=== PATIENT | female | born 1940 | race African-American/Black ===

== ENCOUNTER 2017-01-11 10:19 | Inpatient (IN) ==
[2017-01-11] MEDS ORDERED: cefTRIAXone 1,000 MG in SODIUM CHLORIDE 0.9% 100 ML IV STA (11:34)
[2017-01-11] MEDS ORDERED: ALBUTEROL/IPRATROPIUM 3 ML NEB RESP TX STA (11:34)
--- NOTE | 2017-01-11 12:02 | XRay Report ---
2 view chest. Indication: Cough and fever. The heart is mildly enlarged. Post median sternotomy. Pulmonary vasculature is probably normal. There is diffuse, marked interstitial prominence, there is no consolidation or pleural effusion. Degenerative changes are present within the spinal column and shoulders. Impression: Mild cardiomegaly. Severe interstitial prominence. This may be the result of interstitial fibrosis, interstitial pneumonia, or interstitial edema. PROCEDURE INTERPRETED AT [facility]PART[facility] OF RADIOLOG[facility] Final Report Signed by: Dr. Adriana Narvaez
[2017-01-11 12:13] LABS: Basophils # 0.1 10*3/uL (0.0-0.2); Basophils % 0.4 % (0.0-0.8); Eosinophils # 0.3 10*3/uL (0.0-0.87); Eosinophils % 2.1 % (0.00-10.9); Hematocrit 41.7 VOL% (35.7-47.0); Hemoglobin 13.9 GM/DL (12.0-16.0); Immature Granulocytes % 0.8 %; Immature Granulocytes Absolute 0.13 #; Lymphocytes # 2.5 10*3/uL (1.4-4.0); Lymphocytes % 14.8 % (21.3-54.2); Mean Corpuscular HGB Conc 33.3 GM/DL (32-36); Mean Corpuscular Hemoglobin 29 PG (27-34); Mean Corpuscular Volume 86.2 FL (87-102); Mean Platelet Volume 9.1 FL (9.6-12.0); Monocytes # 1.8 10*3/uL (0.11-0.8); Monocytes % 11.1 % (1.7-12.7); Neutrophils # 11.7 10*3/uL (1.4-7.4); Neutrophils % 70.8 % (38.7-73.9); Platelet Count 393 T/CUMM (130-400); Red Blood Count 4.84 MC/CUMM (3.8-5.5); Red Cell Distribution Width 15.8 % (9.3-17.3); White Blood Count 16.5 T/CUMM (4-12)
[2017-01-11] MEDS ORDERED: SODIUM CHLORIDE 0.9% 100 ML IV ONE (12:16)
[2017-01-11] MEDS ORDERED: cefTRIAXone 1,000 MG VIAL ONE (12:16)
[2017-01-11 12:21] LABS: INR 1.1; PT Patient Result 11.8 SECS; Partial Thromboplastin Time 24.9 SECS (0-40)
[2017-01-11 12:49] LABS: Alanine Aminotransferase 16 U/L (13-56); Albumin 2.9 G/DL (3.4-5.0); Alkaline Phosphatase 98 U/L (45-117); Aspartate Amino Transferase 17 U/L (0-37); Blood Urea Nitrogen 12 MG/DL (7-18); Calcium 10.3 MG/DL (8.5-10.1); Glucose 225 MG/DL (74-106); Osmolality,Calculated 274.2 MOS/KG (273-304); Sodium 134 MMOL/L (136-145); Total Protein 7.3 G/DL (6.4-8.3); Troponin I Only < 0.015 NG/ML (0.00-0.045)
--- NOTE | 2017-01-11 13:32 | Emergency Department Note ---
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 Patient has a history of ammonia several times in the last 2 months and has been admitted at [facility] 3 times according to the family. They state she has really never got back to baseline but worsened again last night. She denies any chest pain, nausea, vomiting or diaphoresis. They also feel like her legs are swelling again. The patient does have a history of CHF according to the family she wears oxygen as needed at home. The family states her oxygen saturation has been progressively decreasing and has been as low as the upper 70s. Allergies/Adverse Reactions: Allergies Allergy/AdvReac Type Severity Reaction Status Date / Time No Known Allergies Allergy Unverified 01/11/17 10:30 Home Medications: Home Medications Medication Instructions Recorded Confirmed Type Atorvastatin [Lipitor] 40 mg PO DAILY 01/11/17 01/11/17 History Budesonide/Formoterol 80-4.5 2 puff INH BID 01/11/17 01/11/17 History [Symbicort 80-4.5] Carvedilol [Coreg] 3.125 mg PO BID 01/11/17 01/11/17 History Fluticasone/Salmeterol 100-50 1 puff INH BID 01/11/17 01/11/17 History [Advair 100-50] Losartan [Cozaar] 25 mg PO DAILY 01/11/17 01/11/17 History Metformin HCl 1,000 mg PO BID 01/11/17 01/11/17 History glyBURIDE [Glyburide] 2.5 mg PO BID 01/11/17 01/11/17 History Review of System - Review of System 12 point system: reviewed and no additional remarkable complaints except as stated - Review of System Constitutional: Present: fever, weakness Head/Ears/Nose/Throat: Absent: nasal drainage, sore throat Respiratory: Present: cough, respiratory distress Cardiovascular: Present: dyspnea on exertion, orthopnea, edema. Absent: chest pain, palpitations, syncope Gastrointestinal: Absent: nausea, vomiting Medical,Surgical,& Family Hx - Medical History Cardio: History of: CHF, Hypertension Endocrine: History of: Diabetes Mellitus (NIDDM), Dyslipidemia Respiratory: History of: Pneumonia - Surgical History Surgical History: noncontributory - Family History Family History: noncontributory - Social History Smoking Status: Never smoker Frequency of Alcohol Use: None Type of Drug Use: None Exam Physical Examination: GENERAL: Alert. No acute distress. HEENT: Normocephalic and atraumatic. There is no nasal drainage. No pharyngeal erythema or exudate. NECK: Normal inspection. Supple. No lymphadenopathy or meningismus. LUNGS: No respiratory distress. Decreased air movement with rales bilaterally, right greater than left.. HEART: Regular rate and rhythm. ABDOMEN: Soft, nontender and nondistended with normoactive bowel sounds. BACK: Normal inspection. SKIN: Color normal. Warm and dry. EXTREMITIES: Nontender. Normal range of motion. No pedal edema. NEUROLOGICAL/PSYCHIATRIC: Alert and oriented -3 with normal mood and affect. Cranial nerves normal. No motor or sensory deficit. Vital Signs: Vital Signs Temperature 100.0 F H 01/11/17 11:19 Pulse Rate 109 H 01/11/17 12:30 Respiratory Rate 20 01/11/17 12:30 Blood Pressure 131/75 01/11/17 12:30 O2 Sat by Pulse Oximetry 87 L 01/11/17 12:30 Course - Reevaluation(s) Reevaluation #1: Urinalysis still pending. Time: 13:30 Reevaluation #2: I have discussed the patient with the hospitalist service who will see her and admit. Time: 13:34 Results - Labs CBC & BMP: 01/11/17 11:31 01/11/17 11:31 Lab Results: I have reviewed the patients labs Labs: Laboratory Tests 01/11/17 01/11/17 01/11/17 11:31 11:31 11:31 INR 1.1 Lactic Acid Magnesium Total Bilirubin 0.50 AST 17 ALT 16 Alkaline Phosphatase 98 Total Creatine Kinase 54 CK-MB (CK-2) < 1.0 Troponin I < 0.015 B-Natriuretic Peptide 48 01/11/17 01/11/17 11:31 11:31 INR Lactic Acid 2.0 Magnesium 1.8 Total Bilirubin AST ALT Alkaline Phosphatase Total Creatine Kinase CK-MB (CK-2) Troponin I B-Natriuretic Peptide - Impressions Chest x-ray shows:Mild cardiomegaly. Severe interstitial prominence. This may be the result of interstitial fibrosis, interstitial pneumonia, or interstitial edema. Disposition Clinical Impression: Pneumonia Case discussed with: patient, patient's family Disposition: Still a Patient Condition: Stable Time of Disposition: 13:33
[2017-01-11 13:38] LABS: Hypochromasia 2+; Target Cells Slight
--- NOTE | 2017-01-11 14:10 | Hospitalist History & Physical ---
Assessment and Plan - Time spent with patient Time spent with patient: Greater than 30 minutes (1) Pneumonia Status: Acute Assessment and plan: Will admit to Hospital Services. Will start Antibiotic therapy. Will start Duonebs breathing treatments. Will order a.m. labs, including A1c. Will monitor for blood culture results. Will discuss with Dr Moe for further recommendations. Current Visit: Yes (2) Diabetes Status: Acute Assessment and plan: Will review home medications and reconciliation to follow. Will monitor blood glucose with sliding scale protocol. Current Visit: Yes History of Present Illness Chief complaint: cough and congestion History of present illness: Ms. Alexandre is a 76 year old black female presented to [facility] ED for further evaluation of coughing and congestion that started last night. She reports a fever this a.m. of 101.0 at home and fever Wednesday but did not remember the temperature. PMHx of CHF, HTN, Diabetes, CAD (CABG at [facility]), dyslipidemia. She reports coughing up thick yellow sputum and shortness of breath with exertion. She denies chest pain, nausea or vomiting. Upon arrival at the ED her Temperature was 100.0; HR 115, RR 20, BP 126/62 and O2 SAT 83% on room air, 87-92% on 3 to 4 Liters NC oxygen. She is feeling a little better after breathing treatment was given in the ED. Labs obtained; CXR obtained. Hospital medicine was consulted for admission evaluation. WBC 16.5, H&H 13.9 & 41.7; NA 134, K 4.0; BUN 12 and Creatinine 0.90; Lactic Acid 2.0; Glucose 225; BNP 48 ; Troponin < 0.015; Urine awaiting collection; Blood cultures obtained. Surgical History: CABG, Hysterectomy; Tubal ligation. PCP: Dr Kayley Cid (at [facility] ) (family verbalized that they want to change primary care physicians). After discussion with Dr Zuluaga in ED and Dr Moe with Hospital Medicine, it was agreed to admit patient for further treatment and evaluation. Home medications will be reviewed and reconciliation to follow. Home Medications Medication Instructions Recorded Confirmed Type Atorvastatin [Lipitor] 40 mg PO DAILY 01/11/17 01/11/17 History Budesonide/Formoterol 80-4.5 2 puff INH BID 01/11/17 01/11/17 History [Symbicort 80-4.5] Carvedilol [Coreg] 3.125 mg PO BID 01/11/17 01/11/17 History Fluticasone/Salmeterol 100-50 1 puff INH BID 01/11/17 01/11/17 History [Advair 100-50] Losartan [Cozaar] 25 mg PO DAILY 01/11/17 01/11/17 History Metformin HCl 1,000 mg PO BID 01/11/17 01/11/17 History glyBURIDE [Glyburide] 2.5 mg PO BID 01/11/17 01/11/17 History Allergies Allergy/AdvReac Type Severity Reaction Status Date / Time No Known Allergies Allergy Unverified 01/11/17 10:30 Medical,Surgical,& Family Hx - Medical History Cardio: History of: CHF, Hypertension Endocrine: History of: Diabetes Mellitus (NIDDM), Dyslipidemia Respiratory: History of: Pneumonia - Surgical History Cardiac Surgeries: Sugical HX of: Cardiac Surgery (CABG at [facility] (Dr Hughes)) - Social History Smoking Status: Never smoker Frequency of Alcohol Use: None Type of Drug Use: None Review of systems: ROS completed and pertinent positives and negatives in the HPI. Exam - Constitutional Vitals: Period Temp Pulse Resp BP Sys/Thompson Pulse Ox Last 24 Hr 100.0 F-100.0 F 104-116 18-22 111-158/62-82 83-92 General appearance: no acute distress, over weight - Head Head exam: Present: normal inspection - Eye Eye exam: Present: EOMI Pupils: Present: ALMAZ - Neck Neck exam: Present: normal inspection - Respiratory Respiratory exam: Present: rales (bilaterally). Absent: wheezes - Cardiovascular Cardiovascular exam: Present: tachycardia (105-111 regular rhythm) - GI/Abdominal GI/Abdominal exam: Present: normal bowel sounds, soft. Absent: tenderness, rebound - Extremities Exam Extremities exam: Present: full ROM. Absent: calf tenderness, edema - Neurological Exam Neurological exam: Present: alert, oriented X3 - Psychiatric Psychiatric exam: Present: normal affect, normal mood. Absent: agitated, anxious - Skin Skin exam: Present: normal color, warm, dry Results - Labs CBC & BMP: 01/11/17 11:31 01/11/17 11:31 Lab Results: I have reviewed the past 24 hour labs - Diagnostic Findings Procedure: Chest x-ray: report reviewed by me (mild cardiomegaly; servere intersitital prominence; may be result of interstitial fibrosis; interstitial pneumonia or interstitial edema) Sepsis - Sepsis Possible / Suspected infection from: HR 112 and WBC 16.5 - Physical Exam Physical Exam: Ms Alexandre is awake and alert,oriented x3, and in no acute distress. Skin warm and dry. Her temperature upon arrival to the ED 100.0, HR 112, and BP 129/78; Nasal Cannula o2 at 3l 87-92% oxygen. Abdomen soft, nontender. Extremities without edema and with normal range of motion. - Physical Exam Respiratory exam: rales (bilateral) Capillary Refill: Less Than 3 Seconds Cardiovascular exam: tachycardia (112 regular) Skin exam: normal color
[2017-01-11] MEDS ORDERED: DEXTROSE 50% 25 GM/50 ML SYRINGE IV PRN (14:35)
[2017-01-11] MEDS ORDERED: DOCUSATE SODIUM 100 MG CAPSULE PO PRN (14:35)
[2017-01-11] MEDS ORDERED: ACETAMINOPHEN 325 MG TABLET PO PRN (14:35)
[2017-01-11] MEDS ORDERED: GLUCAGON 1 MG VIAL IM PRN (14:35)
[2017-01-11] MEDS ORDERED: cefTRIAXone 1,000 MG in SODIUM CHLORIDE 0.9% 100 ML IV SCH (16:00)
[2017-01-11] MEDS: SODIUM CHLORIDE 0.9% 1,000 ML IV SCH (16:52)
[2017-01-11] MEDS: LEVOFLOXACIN INJ 750 MG in PREMIX 1 EACH IV SCH (16:53)
[2017-01-11] MEDS ORDERED: INSULIN LISPRO 100 UNIT/ML SUBCUT SCH (18:00)
[2017-01-11] MEDS: ALBUTEROL/IPRATROPIUM 3 ML NEB RESP TX SCH (19:56)
[2017-01-11] MEDS: INSULIN LISPRO 100 UNIT/ML SUBCUT SCH (22:00)
[2017-01-11] MEDS: CARVEDILOL 3.125 MG TABLET PO SCH (22:00)
[2017-01-11] MEDS: FLUTICASONE/SALMETEROL 100-50 DISKUS 14 DOSE INH SCH (22:00)
[2017-01-11] MEDS: BUDESONIDE/FORMOTEROL 80-4.5 INHALER 6.9 GM INH SCH (22:00)
[2017-01-11] MEDS: glyBURIDE 2.5 MG TABLET PO SCH (22:00)
[2017-01-12] MEDS: ALBUTEROL/IPRATROPIUM 3 ML NEB RESP TX SCH ×4 (00:32→19:55)
[2017-01-12] MEDS: SODIUM CHLORIDE 0.9% 1,000 ML IV SCH ×3 (05:23→18:13)
[2017-01-12 06:25] LABS: Basophils # 0.1 10*3/uL (0.0-0.2); Basophils % 0.5 % (0.0-0.8); Eosinophils # 0.6 10*3/uL (0.0-0.87); Eosinophils % 4.2 % (0.00-10.9); Hematocrit 38.2 VOL% (35.7-47.0); Hemoglobin 12.3 GM/DL (12.0-16.0); Immature Granulocytes % 0.5 %; Immature Granulocytes Absolute 0.07 #; Lymphocytes # 2.5 10*3/uL (1.4-4.0); Lymphocytes % 18.7 % (21.3-54.2); Mean Corpuscular HGB Conc 32.2 GM/DL (32-36); Mean Corpuscular Hemoglobin 28 PG (27-34); Mean Platelet Volume 9.4 FL (9.6-12.0); Monocytes # 2.5 10*3/uL (0.11-0.8); Monocytes % 18.9 % (1.7-12.7); Neutrophils # 7.5 10*3/uL (1.4-7.4); Neutrophils % 57.2 % (38.7-73.9); Platelet Count 352 T/CUMM (130-400); Red Blood Count 4.34 MC/CUMM (3.8-5.5); Red Cell Distribution Width 15.7 % (9.3-17.3); White Blood Count 13.1 T/CUMM (4-12)
[2017-01-12 06:58] LABS: Band Neutrophils 2 % (0-10); Eosinophils 4 % (0-10); Hypochromasia 1+; Lymphocytes 21 % (20-55); Platelet Estimate Adequate; Segmented Neutrophils 58 % (50-85); Total Cells Counted 100
[2017-01-12 06:59] LABS: Giant Platelets Few
[2017-01-12 07:02] LABS: Calcium 9.6 MG/DL (8.5-10.1); Magnesium 1.7 MG/DL (1.8-2.4); Osmolality,Calculated 277.4 MOS/KG (273-304); Potassium 3.5 MMOL/L (3.5-5.1)
[2017-01-12 07:52] LABS: Apearance,Urine CLEAR (Clear); Bilirubin,Urine Negative (Negative); Blood, Urine Negative (Negative); Glucose,Urine (UA) Negative (Negative); Ketones,Urine Negative (Negative); Mucus,Urine Occasional /LPF (Occasional); Nitrite,Urine Negative (Negative); Protein,Urine Negative; RBC,Urine <1 /HPF (0-4); Squamous Epithelial Cell,Urine Occasional /HPF (0-10); Urine Color Yellow (Yellow); Urine Specific Gravity 1.008 (1.001-1.035); Urine Urobilinogen < 2.0 EU/DL (0.2-1.0); WBC,Urine <1 /HPF (0-6)
[2017-01-12] MEDS: LOSARTAN 25 MG TABLET PO SCH (08:43)
[2017-01-12] MEDS: CARVEDILOL 3.125 MG TABLET PO SCH ×2 (08:43→21:10)
[2017-01-12] MEDS: PANTOPRAZOLE 40 MG TABLET PO SCH (08:43)
[2017-01-12] MEDS: glyBURIDE 2.5 MG TABLET PO SCH ×2 (08:43→21:09)
[2017-01-12] MEDS: BUDESONIDE/FORMOTEROL 80-4.5 INHALER 6.9 GM INH SCH ×2 (08:44→21:10)
[2017-01-12] MEDS: FLUTICASONE/SALMETEROL 100-50 DISKUS 14 DOSE INH SCH ×2 (08:44→21:10)
[2017-01-12] MEDS: INSULIN LISPRO 100 UNIT/ML SUBCUT SCH ×4 (08:50→21:10)
--- NOTE | 2017-01-12 09:12 | Hospitalist Progress Note ---
Assessment and Plan (1) Pneumonia Status: Acute Assessment and plan: The patient continues on Levaquin and Rocephin for treatment of pneumonia. I am going to add Robitussin to aid the cough symptoms today. White blood cell count is improved. We will check laboratories again on . Current Visit: Yes Qualifiers: Pneumonia type: due to Pneumococcus Laterality: left Lung location: upper lobe of lung Qualified Code(s): J13 - Pneumonia due to Streptococcus pneumoniae (2) Diabetes Status: Chronic Current Visit: Yes Qualifiers: Diabetes mellitus type: type 2 Diabetes mellitus complication status: without complication Hospitalist: Subjective Interval history: The patient is having less shortness of breath today. The patient has some cough with sputum production. The patient has less fever and appears stronger today. Exam - Constitutional Vitals: Period Temp Pulse Resp BP Sys/Thompson Pulse Ox Last 24 Hr 97.3 F-100.0 F 70-116 16-22 106-158/51-82 83-96 Exam: Constitutional System: Mild distress. No tremulousness. Head: Normocephalic, atraumatic. Ears, Nose and Throat System: No evidence of Otitis or Mastoiditis. No epistaxis or discharge Eyes System: Pupils equal, round, and reactive. Extraocular muscles intact. Neck: Supple, without adenopathy, No jugular venous distention. No thyromegaly , neck mass, or prior surgery apparent. Respiratory System: Chest mild air trapping, moderate rhonchi left upper chest anteriorly to auscultation. Cardiovascular System: Heart with regular rate and rhythm. No murmur. GI System: Abdomen soft, nontender. Normo active bowel sounds present. Musculoskeletal System: limbs with no pedal edema. Full distal pulses. Neurological System: No discernable sensory deficit. No aphasia Psychiatric System: Conversation is rational Results - Labs CBC & BMP: 01/12/17 05:02 01/12/17 05:02 Lab Results: I have reviewed the past 24 hour labs
[2017-01-12] MEDS: guaiFENesin/CODEINE 5 ML LIQUID PO PRN ×4 (09:35→21:10)
[2017-01-12] MEDS: cefTRIAXone 1,000 MG in SODIUM CHLORIDE 0.9% 100 ML IV SCH (11:30)
[2017-01-12] MEDS: LEVOFLOXACIN INJ 750 MG in PREMIX 1 EACH IV SCH (17:03)
[2017-01-13] MEDS: ALBUTEROL/IPRATROPIUM 3 ML NEB RESP TX SCH ×4 (00:08→20:29)
[2017-01-13] MEDS: FLUTICASONE 50 MCG NASAL SPRAY 16 GM BOTTLE BOTH NARES SCH ×3 (01:31→20:43)
[2017-01-13] MEDS: SODIUM CHLORIDE 0.9% 1,000 ML IV SCH ×2 (02:00→11:58)
--- NOTE | 2017-01-13 07:10 | Physician Query Form ---
CLICK EDIT DOCUMENT TO SELECT QUERY ANSWER --> OK --> SIGN Luna Easley RN, CCDS Certified Clinical Thread Cutter Tender W) [phone] (f) [phone] [email or web address] PROVIDERS: Make your selection(s) from the choices in EACH section by typing an "x" and enter comments in the comment section. Please use your independent medical judgment in providing your response. This request does not imply that any particular answer is desired or expected. CLINICAL INDICATORS: (Providers should not edit this section) The medical record indicates that the patient was admitted with pneumonia, "O2 SAT 83% on room air, 87-92% on 3 to 4 Liters NC oxygen" and the ER note states "patient wears oxygen at 2lnc continuously". Based on the above, could you clarify the appropriate diagnosis, if significant , that supports the above abnormalities and additional evaluation, monitoring, and/or treatment rendered: (X ) Patient was treated or monitored for chronic respiratory failure ( ) Patient was not treated or monitored for chronic respiratory failure ( ) Other, please specify: ( ) Clinically unable to determine COMMENTS: PLEASE ALSO DOCUMENT RESPONSE IN PROGRESS NOTES AND/OR DISCHARGE SUMMARY Use of terms such as suspected, likely, or probable (associated with a specific diagnosis that is being evaluated, monitored, or treated as if it exists) are acceptable and can be restated in the discharge summary if not ruled out. MTDD
--- NOTE | 2017-01-13 08:52 | XRay Report ---
XR chest 2V Indication: Cough, fever Comparison: 11 January 2017 Findings: The heart and mediastinum are similar in size and configuration. The pulmonary vascularity is normal in caliber. There is increasing pulmonary densities bilaterally more prominent on the right. No other lung infiltrates, effusions, pneumothorax or other abnormality is demonstrated. Impression: Increasing bilateral pulmonary density, may indicate pneumonia. PROCEDURE INTERPRETED AT [facility] DEPARTMENT OF RADIOLOGY Final Report Signed by: Dr. Law Sanders
[2017-01-13] MEDS: PANTOPRAZOLE 40 MG TABLET PO SCH (09:49)
[2017-01-13] MEDS: INSULIN LISPRO 100 UNIT/ML SUBCUT SCH ×4 (09:49→21:31)
[2017-01-13] MEDS: CARVEDILOL 3.125 MG TABLET PO SCH ×2 (09:49→20:45)
[2017-01-13] MEDS: glyBURIDE 2.5 MG TABLET PO SCH ×2 (09:49→20:45)
[2017-01-13] MEDS: LOSARTAN 25 MG TABLET PO SCH (09:49)
[2017-01-13] MEDS: BUDESONIDE/FORMOTEROL 80-4.5 INHALER 6.9 GM INH SCH ×2 (09:50→20:42)
[2017-01-13] MEDS: FLUTICASONE/SALMETEROL 100-50 DISKUS 14 DOSE INH SCH ×2 (09:50→20:42)
[2017-01-13] MEDS: guaiFENesin/CODEINE 5 ML LIQUID PO PRN ×2 (09:54→16:01)
--- NOTE | 2017-01-13 11:46 | Hospitalist Progress Note ---
Assessment and Plan (1) Pneumonia Status: Acute Assessment and plan: The patient continues on Levaquin and Rocephin for treatment of pneumonia. I am going to continue Robitussin to aid the cough symptoms today. White blood cell count is improved. We will check laboratories again on . Chest x- ray is consistent with diagnosis of pneumonia. Current Visit: Yes Qualifiers: Pneumonia type: due to Pneumococcus Laterality: left Lung location: upper lobe of lung Qualified Code(s): J13 - Pneumonia due to Streptococcus pneumoniae (2) Diabetes Status: Chronic Current Visit: Yes Qualifiers: Diabetes mellitus type: type 2 Diabetes mellitus complication status: without complication Hospitalist: Subjective Interval history: The patient's symptom of sputum production is improving. She has less cough although she is being given some cough syrup now. Chest x-ray reveals greater infiltrate consistent with developing pneumonia. Exam - Constitutional Vitals: Period Temp Pulse Resp BP Sys/Thompson Pulse Ox Last 24 Hr 96.5 F-98.9 F 85-99 16-20 95-138/53-84 82-99 Exam: Constitutional System: No distress. No tremulousness. Sitting at side of bed conversing with her and family. Head: Normocephalic, atraumatic. Ears, Nose and Throat System: No evidence of Otitis or Mastoiditis. No epistaxis or discharge Eyes System: Pupils equal, round, and reactive. Extraocular muscles intact. Neck: Supple, without adenopathy, No jugular venous distention. No thyromegaly , neck mass, or prior surgery apparent. Respiratory System: Chest mild air trapping, mild rhonchi left upper chest anteriorly to auscultation. Cardiovascular System: Heart with regular rate and rhythm. No murmur. GI System: Abdomen soft, nontender. Normo active bowel sounds present. Musculoskeletal System: limbs with no pedal edema. Full distal pulses. Neurological System: No discernable sensory deficit. No aphasia Psychiatric System: Conversation is rational Results - Labs CBC & BMP: 01/12/17 05:02 01/12/17 05:02 Lab Results: I have reviewed the past 24 hour labs - Diagnostic Findings Procedure: Chest x-ray: image reviewed by me, report reviewed by me (Increasing generalized infiltrate bilateral lungs right greater than left)
[2017-01-13] MEDS: cefTRIAXone 1,000 MG in SODIUM CHLORIDE 0.9% 100 ML IV SCH (12:23)
[2017-01-13] MEDS: LEVOFLOXACIN INJ 750 MG in PREMIX 1 EACH IV SCH (16:50)
[2017-01-14] MEDS: ALBUTEROL/IPRATROPIUM 3 ML NEB RESP TX SCH ×2 (00:55→07:07)
[2017-01-14 07:15] LABS: Basophils # 0.1 10*3/uL (0.0-0.2); Basophils % 0.6 % (0.0-0.8); Eosinophils # 0.6 10*3/uL (0.0-0.87); Eosinophils % 5.6 % (0.00-10.9); Hematocrit 39.1 VOL% (35.7-47.0); Hemoglobin 12.7 GM/DL (12.0-16.0); Immature Granulocytes % 0.3 %; Immature Granulocytes Absolute 0.03 #; Lymphocytes # 1.8 10*3/uL (1.4-4.0); Lymphocytes % 16.4 % (21.3-54.2); Mean Corpuscular HGB Conc 32.5 GM/DL (32-36); Mean Corpuscular Hemoglobin 28 PG (27-34); Mean Corpuscular Volume 87.1 FL (87-102); Mean Platelet Volume 10.5 FL (9.6-12.0); Monocytes # 1.4 10*3/uL (0.11-0.8); Monocytes % 12.9 % (1.7-12.7); Neutrophils % 64.2 % (38.7-73.9); Red Blood Count 4.49 MC/CUMM (3.8-5.5); Red Cell Distribution Width 15.5 % (9.3-17.3); White Blood Count 10.9 T/CUMM (4-12)
[2017-01-14 07:20] LABS: Platelet Count 275 T/CUMM (130-400)
[2017-01-14 07:41] LABS: Calcium 9.3 MG/DL (8.5-10.1)
[2017-01-14 07:42] LABS: Magnesium 1.8 MG/DL (1.8-2.4); Osmolality,Calculated 280.1 MOS/KG (273-304); Potassium 3.7 MMOL/L (3.5-5.1)
[2017-01-14 07:48] LABS: Platelet Estimate Normal
[2017-01-14] MEDS: INSULIN LISPRO 100 UNIT/ML SUBCUT SCH (08:23)
--- NOTE | 2017-01-14 09:58 | Discharge Summary ---
Hospital Course - Hospital Course Hospital Course: The patient was admitted to the hospital with pneumonia right base greater than the left. The patient had excess sputum production and cough with fever. The patient improved promptly on IV antibiotics including Rocephin and Levaquin. The patient's cough was treated with Robitussin and codeine cough syrup. The patient has reached maximum medical benefit is now ready for discharge home on another week of oral antibiotic at home. On the date of discharge, chest reveals clear upper airways, some rhonchi in the right anterior lung field. Heart has regular rate and rhythm and abdomen soft. The patient was screened for tobacco and found to be a never smoker. The patient was given 4 minutes encouragement tobacco education and avoidance. The patient is her own decision maker and requested full code. The patient's medications were reconciled on the date of admission and again upon discharge. On the date of discharge, evaluation, examination, preparation of discharge documents and prescriptions required 34 minutes. - Time spent with patient Time with patient DS: Greater than 30 minutes Time spent discussing smoking cessation with patient: 3 to 10 minutes Diagnosis - Discharge Diagnosis (1) Pneumonia Status: Resolved (2) Diabetes Status: Chronic Discharge Plan - Discharge Data Disposition: Disch To Home/Self Care Condition at Discharge: Stable Activity: resume usual activities as tolerated - Discharge Medications New Ciprofloxacin Tab [Cipro Tab] 250 mg PO BID #14 tablet Cefuroxime Tab [Ceftin] 250 mg PO BID #14 tablet guaiFENesin/CODEINE [Robitussin AC] 5 ml PO Q4H PRN #60 ml PRN Reason: Cough Continue Fluticasone/Salmeterol 100-50 [Advair 100-50] 1 puff INH BID Carvedilol [Coreg] 3.125 mg PO BID glyBURIDE [Glyburide] 2.5 mg PO BID Losartan [Cozaar] 25 mg PO DAILY Metformin HCl 1,000 mg PO BID Budesonide/Formoterol 80-4.5 [Symbicort 80-4.5] 2 puff INH BID Atorvastatin [Lipitor] 40 mg PO DAILY - Follow Up or Referral Follow Up: Your,PCP [Other] - Forms/Instructions Exam - Constitutional Vitals: Period Temp Pulse Resp BP Sys/Thompson Pulse Ox Last 24 Hr 97.4 F-98.0 F 91-105 16-22 96-150/58-69 89-99 Discharge Results Procedures and tests throughout hospitalization: Pending Orders 01/11/17 12:05 Blood Culture Stat Labs on day of discharge: Labs from last 24 hours 01/14/17 01/14/17 01/14/17 07:22 06:31 06:31 WBC 10.9 RBC 4.49 Hgb 12.7 Hct 39.1 MCV 87.1 MCH 28 MCHC 32.5 RDW 15.5 Plt Count 275 D MPV 10.5 Neut % (Auto) 64.2 Lymph % (Auto) 16.4 L Wise % (Auto) 12.9 H Eos % (Auto) 5.6 Baso % (Auto) 0.6 Neut # (Auto) 7.0 Lymph # (Auto) 1.8 Wise # (Auto) 1.4 H Eos # (Auto) 0.6 Baso # (Auto) 0.1 Immature Gran % 0.3 Nucleated RBC % 0.0 Immature Gran # 0.03 Nucleated RBCs # 0.00 Platelet Estimate Normal Immature Plt Fraction 0.0 Morphology Comment Sodium 142 Potassium 3.7 Chloride 103 Carbon Dioxide 30 Anion Gap 12.7 BUN 6 L Creatinine 0.70 GFR Calculation 119 BUN/Creatinine Ratio 8.00 Glucose 98 POC Glucose 116 H Calculated Osmolality 280.1 Calcium 9.3 Magnesium 1.8 01/13/17 01/13/17 01/13/17 19:02 15:18 11:09 WBC RBC Hgb Hct MCV MCH MCHC RDW Plt Count MPV Neut % (Auto) Lymph % (Auto) Wise % (Auto) Eos % (Auto) Baso % (Auto) Neut # (Auto) Lymph # (Auto) Wise # (Auto) Eos # (Auto) Baso # (Auto) Immature Gran % Nucleated RBC % Immature Gran # Nucleated RBCs # Platelet Estimate Immature Plt Fraction Morphology Comment Sodium Potassium Chloride Carbon Dioxide Anion Gap BUN Creatinine GFR Calculation BUN/Creatinine Ratio Glucose POC Glucose 196 H 264 H 208 H Calculated Osmolality Calcium Magnesium Preliminary micro results at discharge 01/11/17 12:05 Blood Culture - Preliminary Blood No growth at 1 day 01/11/17 11:31 Blood Culture - Preliminary Blood No growth at 1 day DS: Provider Date of admission: 01/11/17 13:58 Primary care physician: . No PCP Attending physician on admission: Rocky Moe MD Consults: 01/11/17 14:39 Consult to Case Mgmt/Social Srvs [CONS] Routine Reason for Case Mgmt/Social Srvs: Discharge Planning 01/11/17 16:49 Consult to Dietitian [CONS] Routine Reason for Dietitian: Other Discharging clinician: Rocky Moe MD
[2017-01-14] MEDS: PANTOPRAZOLE 40 MG TABLET PO SCH (10:00)
[2017-01-14] MEDS: CARVEDILOL 3.125 MG TABLET PO SCH (10:00)
[2017-01-14] MEDS: FLUTICASONE 50 MCG NASAL SPRAY 16 GM BOTTLE BOTH NARES SCH (10:00)
[2017-01-14] MEDS: LOSARTAN 25 MG TABLET PO SCH (10:00)
[2017-01-14] MEDS: guaiFENesin/CODEINE 5 ML LIQUID PO PRN (10:00)
[2017-01-14] MEDS: glyBURIDE 2.5 MG TABLET PO SCH (10:00)
[2017-01-14] MEDS: BUDESONIDE/FORMOTEROL 80-4.5 INHALER 6.9 GM INH SCH (10:01)
[2017-01-14] MEDS: FLUTICASONE/SALMETEROL 100-50 DISKUS 14 DOSE INH SCH (10:01)
[2017-01-14 10:52] VITALS: BP 82/61
--- NOTE | 2017-01-15 12:43 | Physician Query Form ---
CLICK EDIT DOCUMENT TO SELECT QUERY ANSWER --> OK --> SIGN Luna Easley RN, CCDS Certified Clinical Marketing Sales Consultant W) [phone] (f) [phone] [email or web address] PROVIDERS: Make your selection(s) from the choices in EACH section by typing an "x" and enter comments in the comment section. Please use your independent medical judgment in providing your response. This request does not imply that any particular answer is desired or expected. CLINICAL INDICATORS: (Providers should not edit this section) The medical record indicates that the patient was admitted with pneumonia, WBC 16.5#, Temp 100.0, Lactic Acid Level of 2.0, Pulse of 109, Respirations of 20 and the patient was treated with antibiotics. Please clarify which, if any, of the following is the etiology of the above symptoms and treatment rendered: (X ) Sepsis due to a localized infection, please specify infection:pneumonia ( ) Severe Sepsis (sepsis with acute organ failure) - Please specify type acute organ failure: ( ) Septic Shock (severe sepsis with hypotension) ( ) SIRS of noninfectious origin ( ) Sepsis due to a device, implant or graft, please specify: ( ) Localized infection only, without systemic illness, please specify infection : ( ) Bacteremia (abnormal lab finding only, does not indicate systemic illness) ( ) Other condition, please specify: ( ) Clinically unable to determine Criteria for Sepsis (SIRS due to an infection) should be based on 2 or more of the following being present: Temperature > 101F or < 96.8F WBC > 12,000 or < 4,000, or > 10% bands Tachycardia HR > 90 beats/minute Tachypnea RR > 20 breaths/minute or PaCO2 > 32mmHg Lactate level > 2.0 mmol/L (>4 is equivalent to severe sepsis) Altered Mental Status Mottling of skin or prolonged capillary refill Non-diabetic hyperglycemia (blood sugar >120 mg/dl) Other evidence of acute organ failure associated with sepsis ( severe sepsis) COMMENTS: PLEASE ALSO DOCUMENT RESPONSE IN PROGRESS NOTES AND/OR DISCHARGE SUMMARY Use of terms such as suspected, likely, or probable (associated with a specific diagnosis that is being evaluated, monitored, or treated as if it exists) are acceptable and can be restated in the discharge summary if not ruled out. MTDD
== END 2017-01-14 11:31 | disposition home health service (06) | DRG 871 ==
LOC: N.ED 10:19 → N.EDINP 13:58 → N.5E 15:43
PROVIDERS: ADMIT Internal Medicine; ATTEND Internal Medicine

== ENCOUNTER 2020-03-03 12:01 | Observation (INO) ==
[2020-03-03] MEDS ORDERED: carvediloL 3.125 MG TABLET PO STA (14:14)
[2020-03-03 14:46] LABS: ABG HCO3 28.7 MMOL/L (20-26); ABG Oxygen Saturation 92.6 % (95-100); ABG PCO2 40.8 MM HG (35-48); ABG PH 7.463 (7.35-7.45); ABG TCO2 24.7 MMOL/L (23-27)
[2020-03-03 14:47] LABS: Allen Test Positive
[2020-03-03 15:00] LABS: Basophils % 0.3 % (0.0-0.8); Eosinophils # 0.3 10*3/uL (0.0-0.87); Eosinophils % 2.4 % (0.00-10.9); Hemoglobin 13.5 GM/DL (12.0-16.0); Immature Granulocytes % 0.4 %; Immature Granulocytes Absolute 0.05 #; Lymphocytes # 2.1 10*3/uL (1.4-4.0); Lymphocytes % 17.6 % (21.3-54.2); Mean Corpuscular HGB Conc 33.8 GM/DL (32-36); Mean Platelet Volume 9.5 FL (9.6-12.0); Monocytes % 13.7 % (1.7-12.7); Neutrophils % 65.6 % (38.7-73.9); Platelet Count 288 T/CUMM (130-400); Red Blood Count 4.35 MC/CUMM (3.8-5.5); Red Cell Distribution Width 12.5 % (9.3-17.3); White Blood Count 12.2 T/CUMM (4-12)
[2020-03-03] MEDS ORDERED: FUROSEMIDE 40 MG/4 ML VIAL IV STA (15:10)
[2020-03-03 15:21] VITALS: BP 158/102
[2020-03-03 15:26] LABS: Alanine Aminotransferase 22 U/L (13-56); Alkaline Phosphatase 92 U/L (45-117); Aspartate Amino Transferase 17 U/L (0-37); Bilirubin,Total < 0.39 MG/DL (0.2-1.0); Blood Urea Nitrogen 8 MG/DL (7-18); Calcium 8.8 MG/DL (8.5-10.1); Estimated Glom Filtration Rate 107 ML/MIN; Glucose 212 MG/DL (74-106); Total Protein 6.6 G/DL (6.4-8.3)
[2020-03-03 16:12] LABS: Bilirubin,Urine Negative (Negative); Blood, Urine Negative (Negative); Glucose,Urine (UA) 150 mg/dL (Negative); Ketones,Urine Negative (Negative); Nitrite,Urine Negative (Negative); Protein,Urine Negative; RBC,Urine 2 /HPF (0-4); Urine Appearance CLEAR (Clear); Urine Color Yellow (Yellow); Urine Specific Gravity 1.009 (1.001-1.035); WBC,Urine <1 /HPF (0-6)
[2020-03-03] MEDS ORDERED: tiZANidine 4 MG TABLET PO ONE (17:01)
[2020-03-03] MEDS ORDERED: DEXTROSE 50% 25 GM/50 ML VIAL IV PRN ×2 (17:36)
[2020-03-03] MEDS ORDERED: GLUCAGON 1 MG VIAL IM PRN ×2 (17:36)
[2020-03-03] MEDS ORDERED: ENOXAPARIN 40 MG/0.4 ML SYRINGE SUBCUT SCH (21:00)
[2020-03-03] MEDS: carvediloL 6.25 MG TABLET PO SCH (21:04)
[2020-03-03] MEDS: BACLOFEN 10 MG TABLET PO PRN (21:04)
[2020-03-03] MEDS: INSULIN LISPRO 100 UNIT/ML SUBCUT SCH (21:05)
[2020-03-04] MEDS ORDERED: ACETAMINOPHEN 325 MG TABLET PO PRN (03:52)
[2020-03-04 05:46] LABS: Basophils # 0.1 10*3/uL (0.0-0.2); Basophils % 0.5 % (0.0-0.8); Eosinophils # 0.3 10*3/uL (0.0-0.87); Hematocrit 40.8 VOL% (35.7-47.0); Hemoglobin 13.7 GM/DL (12.0-16.0); Immature Granulocytes % 0.4 %; Immature Granulocytes Absolute 0.05 #; Lymphocytes # 2.4 10*3/uL (1.4-4.0); Lymphocytes % 20.9 % (21.3-54.2); Mean Corpuscular HGB Conc 33.6 GM/DL (32-36); Mean Corpuscular Volume 90.7 FL (87-102); Mean Platelet Volume 9.7 FL (9.6-12.0); Neutrophils % 59.2 % (38.7-73.9); Platelet Count 307 T/CUMM (130-400); Red Cell Distribution Width 12.5 % (9.3-17.3); White Blood Count 11.5 T/CUMM (4-12)
[2020-03-04 06:06] LABS: Eosinophils 2 % (0-10); Hypochromasia 1+; Lymphocytes 22 % (20-55); Platelet Estimate Adequate; Segmented Neutrophils 64 % (50-85); Total Cells Counted 100
[2020-03-04 06:29] LABS: Albumin 3.1 G/DL (3.4-5.0); Bilirubin,Total 0.8 MG/DL (0.2-1.0); Calcium 9.7 MG/DL (8.5-10.1); Osmolality,Calculated 274.1 MOS/KG (273-304); Risk Ratio 10.27; Thyroid Stimulating Hormone 1.33 uIU/ml (0.358-3.74); Total Protein 7.3 G/DL (6.4-8.3); VLDL CHOLESTEROL 44.4 MG/DL
[2020-03-04] MEDS ORDERED: MAGNESIUM SULF RIDER 2 GM in PREMIX 1 EACH IV ONE (07:54)
[2020-03-04] MEDS: carvediloL 6.25 MG TABLET PO SCH (08:17)
[2020-03-04] MEDS: INSULIN LISPRO 100 UNIT/ML SUBCUT SCH (08:17)
[2020-03-04] MEDS: BACLOFEN 10 MG TABLET PO PRN (08:17)
== END 2020-03-04 12:22 | disposition home or self-care (01) ==
LOC: N.EDINP 12:01 → N.ED 12:01 → N.TELES 19:15
PROVIDERS: ADMIT Internal Medicine Geriatric Medicine; ATTEND Internal Medicine Geriatric Medicine